=== PATIENT | male | born 1995 ===

== ENCOUNTER → 2020-02-04 | Outpatient (CLI) | payer BC ==
[2020-02-04 10:33] LABS: Cholesterol 152 mg/dL (< 200); HDL Cholesterol 49 mg/dL (40-59); LDL Cholesterol 98 mg/dL (< 100); Triglycerides 63 mg/dL (< 150)
== END | disposition home or self-care (01) ==
LOC: LAB 09:40
PROVIDERS: ATTEND Internal Medicine
DX: Z00.00 Encounter for general adult medical examination without abnormal findings (principal)
CPT/HCPCS: 36415; 80061